=== PATIENT | female | born 1940 | race Caucasian/White ===

== ENCOUNTER 2016-07-28 10:51 | Outpatient (CLI) | payer OTHER ==
--- NOTE | 2016-07-28 11:29 | DIAGNOSTIC IMAGING REPORT ---
PROCEDURE: XR CHEST 2 VIEW INDICATION: PNUEMONIA DUE TO PSEUDOMONAS TECHNIQUE: PA and lateral view. COMPARISON: Chest x-ray 11/10/2014 FINDINGS: Hyperinflation. Left mid lung scarring. No evidence of pneumonia. Prominent left pericardial fat pad. Mediastinum and pulmonary vessels are normal. There is a moderate upper thoracic spine compression fracture, new since the prior study. IMPRESSION: 1. No evidence of pneumonia 2. COPD 3. Moderate upper thoracic spine compression fracture, new since Chest x-ray 11/10/2014
== END 2016-07-28 23:00 ==
LOC: XR SRH 10:51
DX: J44.9 Chronic obstructive pulmonary disease, unspecified (principal)